=== PATIENT | female | born 2005 | race Caucasian/White ===

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

== ENCOUNTER 2025-02-15 21:56 | Emergency (ER) | payer OTHER ==
[~2025-02-15] VITALS: Ht 170.2 cm; Wt 147.4 kg
[2025-02-15] MEDS ORDERED: Ketorolac Tromethamine 30mg Vial IM ONE (22:25)
[2025-02-15] MEDS ORDERED: Prochlorperazine Edisylate 10 mg Vial IM ONE (22:25)
[2025-02-15] MEDS ORDERED: COMPAZINE10 MG PO (23:23)
[2025-02-15] MEDS ORDERED: IBU600 MG PO (23:23)
[2025-02-15 23:34] VITALS: BP 170/80
== END 2025-02-15 23:36 | disposition home or self-care (01) ==
LOC: ER 21:56
DX: G43.909 Migraine, unspecified, not intractable, without status migrainosus (principal); Z91.030 Bee allergy status; Z91.013 Allergy to seafood
CPT/HCPCS: 81025; 96372; 99283-25; J0780; J1885